=== PATIENT | male | born 1960 | race Caucasian/White ===

== ENCOUNTER 2021-04-23 13:36 | Emergency (ER) | payer OTHER, SELFPAY ==
--- NOTE | ~2021-04-23 | CT_ITS ---
EXAMINATION: CT cervical spine wo [facility] EXAM DATE: 04/23/2021 16:43 INDICATION: Neck pain. TECHNIQUE: Spiral CT of the cervical spine was performed without contrast. Axial images were reviewe d. Coronal and sagittal reformatted images cervical spine were also reviewed. The dose-length produc t (DLP) for this examination was 383.48 mGy-cm. The exposure was tailored according to patient size (auto mA exposure control), and iterative reconstruction (ASIR) was used as additional dose reduction technique. There is no prior study for comparison. FINDINGS: There is moderate disc disease at C6-7, mild at C4-5 and 5-6. Straightening of normal cerv ical lordosis could be positional or spasm. There are no acute fractures identified. The odontoid pro cess is intact. The lateral masses of C1 line up with C2. Prevertebral soft tissue and pre-dens spac e are within normal limits. Sternotomy wires. Level by level evaluation: C2-C3: Disc does not extend beyond the endplate margin. Uncovertebral joint arthropathy: Mild left. Facet joint arthropathy: Mild bilateral. Neural foraminal stenosis: No stenosis. Central canal stenosis: No stenosis. C3-C4: There is a minimal diffuse disc bulge. Uncovertebral joint arthropathy: Mild left. Facet joint arthropathy: Moderate left, mild right. Neural foraminal stenosis: No stenosis. Central canal stenosis: No stenosis. C4-C5: There is a mild diffuse disc bulge. Uncovertebral joint arthropathy: Mild bilateral. Facet joint arthropathy: Mild bilateral. Neural foraminal stenosis: Minimal right. Central canal stenosis: No stenosis. C5-C6: There is a mild diffuse disc bulge asymmetric to the left Uncovertebral joint arthropathy: Moderate left, mild right. Facet joint arthropathy: Mild to moderate right, mild left. Neural foraminal stenosis: Mild left. Central canal stenosis: Mild. C6-C7: There is a mild to moderate diffuse disc bulge. Uncovertebral joint arthropathy: Moderate to severe bilateral. Facet joint arthropathy: Mild to moderate right, mild left. Neural foraminal stenosis: Moderate to severe bilateral. Central canal stenosis: Mild. C7-T1: Disc does not extend beyond the endplate margin. Uncovertebral joint arthropathy: Mild bilateral. Facet joint arthropathy: Moderate right, mild left. Neural foraminal stenosis: Moderate right. Central canal stenosis: No stenosis. IMPRESSION: 1. C6-7 moderate to severe bilateral neural foraminal stenosis. 2. Cervical straightening. Reviewed, dictated and finalized at location A.
--- NOTE | ~2021-04-23 | XR_ITS ---
EXAMINATION: XR chest 2V DATE: 04/23/2021 14:06 INDICATION: Left shoulder pain TECHNIQUE: PA and lateral views of the chest are obtained. COMPARISON: None available FINDINGS: The lungs are free of acute opacities. There is no pleural effusion or pneumothorax. The ca rdiomediastinal silhouette is normal. There is mild thoracic spondylosis. Median sternotomy wires and mediastinal surgical clips are seen, likely from prior coronary artery bypass grafting. IMPRESSION: 1. No acute cardiopulmonary abnormality. Reviewed, dictated and finalized at location B.
--- NOTE | 2021-04-23 13:56 | ECG_ITS ---
Measurements Intervals [place] Rate: 69 P: 59 MS: 181 QRS: 42 QRSD: 93 T: 30 QT: 371 QTc: 400 Interpretive Statements SINUS RHYTHM POSSIBLE LEFT ATRIAL ENLARGEMENT INCOMPLETE RIGHT BUNDLE BRANCH BLOCK BASELINE ARTIFACT- V5-V6 BORDERLINE ECG Electronically Signed On 04-23-2021 14:53:28 CDT by Ken Henley D.O.
[2021-04-23 14:24] VITALS: BP 161/106; PULSE 73; RESP 14; TEMP 36.8; O2SAT 99
[2021-04-23 14:46] LABS: Basophils Percent Auto 0.4 % (0.2-1.2); Eosinophils Absolute Auto 0.1 K/mm3 (0-0.3); Eosinophils Percent Auto 0.8 % (0-4.4); Hematocrit 45.4 % (42.0-52.0); Hemoglobin 14.6 g/dL (14.0-18.0); Immature Granulocyte Absolute 0.06 K/mm3 (0.00-0.031); Immature Granulocyte Percent A 0.5 % (0-0.5); Immature Platelet Fraction Pct 3.6 % (0.9-11.2); Lymphocytes Absolute Auto 1.65 K/mm3 (0.9-3.2); Lymphocytes Percent Auto 15.1 % (18.3-44.2); Mean Corpuscular HGB Conc 32.2 g/dl (32-36); Mean Corpuscular Hemoglobin 30.2 pg (26-34); Mean Platelet Volume 9.3 fl (7.4-10.4); Monocytes Percent Auto 9.1 % (2.6-8.5); Neutrophils Absolute Auto 8.1 K/mm3 (1.3-6.7); Neutrophils Percent Auto 74.1 % (45.5-73.1); Platelet Count Result 303 k/mm3 (150-375); Red Blood Count 4.83 M/mm3 (4.6-6.20); Red Cell Distribution Width 12.7 % (11.5-14.5); White Blood Count 10.9 K/mm3 (4.5-10.0)
[2021-04-23 14:53] LABS: Anion Gap 8 mmol/L (8-16); Blood Urea Nitrogen 23 mg/dL (9-20); Calcium 9.5 mg/dL (8.4-10.2); Carbon Dioxide 26 mmol/L (22-30); Chloride 101 mmol/L (98-107); Estimated CRCL calculation 85 ml/min; Estimated Glomerular Filt Rate > 60; Glucose 89 mg/dL (65-110); Potassium 4.6 mmol/L (3.4-5.0); Sodium 135 mmol/L (137-145)
[2021-04-23 14:56] LABS: INR 0.8; Prothrombin Time 11.4 Seconds (11.1-14.7)
[2021-04-23 14:57] LABS: Partial Thromboplastin Time 22.4 SECONDS (22.3-36.8)
[2021-04-23 15:04] LABS: Troponin I < 0.012 ng/mL (0.000-0.034)
[2021-04-23 16:07] VITALS: BP 166/98; PULSE 64; RESP 21; O2SAT 100
[2021-04-23 16:08] VITALS: BP 166/98; PULSE 62; RESP 20; O2SAT 100
[2021-04-23 16:10] VITALS: PULSE 65
[2021-04-23] MEDS: ASPIRIN 81 MG CHEWABLE TABLET 324 MG PO (16:12)
--- NOTE | 2021-04-23 17:28 | ED.CHESTPAIN ---
HPI - Chest Pain General Chief Complaint: Chest Pain Stated Complaint: left shouler pain/no injury Time Seen by Provider: 04/23/21 16:10 Source: patient and family Mode of arrival: ambulatory Limitations: no limitations History of Present Illness HPI narrative: 60-year-old with a history of coronary artery disease s/p CABG here with complaints of left shoulder neck pain radiating into his left side of the chest. Patient states that the given history of heart problems she did not want to take a chance. Patient states that for the past few weeks she has been having neck issues and he been taking prednisone with only minimal relief. His mentions that he is scheduled for MRI of the neck. Patient presently denies any shortness of breath, nausea or vomiting. He states that pain is constant from his neck radiating into the left chest area. MD complaint: chest pain Pertinent past history: coronary artery disease Onset (ago): day(s) (1) Timing of current episode: constant and still present Prior episodes: No Pain radiation: left shoulder Quality: aching Relieving factors: nothing Exacerbating factors: nothing Risk Factors Coronary artery disease risk factors: family history of CAD before age 50 Related Data Allergies Allergy/AdvReac Type Severity Reaction Status Date / Time No Known Allergies Allergy Verified 04/23/21 16:11 Review of Systems Review of Systems: All systems reviewed & are unremarkable except as noted in HPI and below Constitutional: Constitutional: Reports no additional constitutional complaints Eyes: Eyes: Reports no additional eye complaints ENT: Reports system reviewed and no additional complaints, except as documented Cardiovascular: Cardiovascular: Reports as per HPI Respiratory: Respiratory: Reports no additional respiratory complaints Gastrointestinal: Gastrointestinal: Reports no additional gastrointestinal complaints Musculoskeletal: Musculoskeletal: Reports as per HPI Neurologic: Reports system reviewed and no additional complaints, except as documented PMFSH Social History Social History Gender identity (if verbalized by the patient): Male Exam Narrative: Exam Narrative: GENERAL: Well-appearing, well-nourished, and in no acute distress. HEAD: Normocephalic, atraumatic. EYES: PERRLA and EOMI. ENT: Nares clear, no rhinorrhea or epistaxis. Mucous membranes moist. NECK: Supple. Tender on palpation between C5-C6-C7 area CHEST: Clear to auscultation. No respiratory distress. HEART: Regular rate and rhythm. No murmur heard. Normal peripheral pulses. ABDOMEN: Soft, nontender, nondistended, normal active bowel sounds. EXTREMITIES: Normal range of motion. No edema. SKIN: Warm, dry, no rash. NEURO: No focal deficits. Alert and oriented x3. PSYCH: Normal mood and affect. Course Course Emergency Course: This patient is quite reproducible with flexion extension of his neck. I informed him about his lab work, EKG findings. This pain appears to be more from cervical area rather than cardiac. Advised him to continue with steroids for another week. Consult pain management for possible epidural blocks. Patient states that he feels comfortable going home. Vital Signs Vital signs: Vital Signs Temperature 36.8 C 04/23/21 14:24 Pulse Rate 73 04/23/21 14:24 Respiratory Rate 14 04/23/21 14:24 Blood Pressure 161/106 H 04/23/21 14:24 Pulse Oximetry 99 04/23/21 14:24 Temperature 36.8 C 04/23/21 14:24 Pulse Rate 65 04/23/21 16:10 Respiratory Rate 20 04/23/21 16:08 Blood Pressure 166/98 H 04/23/21 16:08 Pulse Oximetry 100 04/23/21 16:08 MDM - Chest Pain Lab Data Result diagrams: 04/23/21 14:31 04/23/21 14:31 Labs: Lab Results 04/23/21 04/23/21 04/23/21 Range/Units 14:31 14:31 14:31 WBC 10.9 H (4.5-10.0) K/mm3 RBC 4.83 (4.6-6.20) M/mm3 Hgb 14.6 (14.0-18.0)
[2021-04-23 17:35] VITALS: BP 159/106; PULSE 68; RESP 19; O2SAT 100
[2021-04-23 17:37] LABS: Troponin I < 0.012 ng/mL (0.000-0.034)
[2021-04-23] MEDS: KETOROLAC 30 MG/ML VIAL (*BKC) IV PUSH (17:53)
[2021-04-23 18:21] VITALS: BP 157/97; PULSE 74; RESP 19; O2SAT 99
== END 2021-04-23 18:30 | disposition home or self-care (01) ==
PROVIDERS: Emergency Medicine; Emergency Provider Family Medicine; PCP Internal Medicine
DX: M54.12 Radiculopathy, cervical region (principal); R07.89 Other chest pain; I25.10 Atherosclerotic heart disease of native coronary artery without angina pectoris; Z95.1 Presence of aortocoronary bypass graft; M48.02 Spinal stenosis, cervical region; I45.10 Unspecified right bundle-branch block; R94.31 Abnormal electrocardiogram [ECG] [EKG]
CPT/HCPCS: 36415; 71046; 72125; 80048; 84484; 85025; 85055; 85610; 85730; 93005; 96374; 96375; 99284; A9270; J1100; J1885

== ENCOUNTER 2024-06-29 08:44 | Outpatient (CLI) | payer OTHER, SELFPAY ==
--- NOTE | ~2024-06-29 | US_ITS ---
RIGHT LOWER EXTREMITY VENOUS ULTRASOUND Ordering provider: Namrata Feng, MICROBIOLOGY LAB TECHNICIAN History: . dvt . Comparison: None. FINDINGS: --COMMON FEMORAL: Patent and free of thrombus. Normal compressibility, phasic flow and augmentation. --PROXIMAL SUPERFICIAL FEMORAL: Patent and free of thrombus. Normal compressibility, phasic flow and augmentation. --DISTAL SUPERFICIAL FEMORAL: Patent and free of thrombus. Normal compressibility, phasic flow and au gmentation. --POPLITEAL: Patent and free of thrombus. Normal compressibility, phasic flow and augmentation. --POSTERIOR TIBIAL: Patent and free of thrombus. Normal compressibility, phasic flow and augmentation . Complex cystic area most likely Alfred's cyst is seen medially from upper to lower leg measuring 2.7 x 1 x 2.7 cm. Other differential is possible hematoma. IMPRESSION: Negative right lower extremity venous US. No deep vein thrombosis. Cystic structure seen extending from the upper to the lower leg medially most likely represent a Bake r's cyst versus hematoma. Clinical correlation advised Reviewed, dictated and finalized at location A. IMPRESSION: Negative right lower extremity venous US. No deep vein thrombosis. Cystic structure seen extending from the upper to the lower leg medially most l ikely represent a Alfred's cyst versus hematoma. Clinical correlation advised
== END 2024-06-29 08:45 | disposition home or self-care (01) ==
PROVIDERS: PCP Internal Medicine; Visit Provider Nurse Practitioner Family
DX: R79.89 Other specified abnormal findings of blood chemistry (principal); I80.231 Phlebitis and thrombophlebitis of right tibial vein
CPT/HCPCS: 93971

== ENCOUNTER 2024-08-02 10:03 | Outpatient (CLI) | payer OTHER, SELFPAY ==
--- NOTE | ~2024-08-02 | XR_ITS ---
EXAM: XR_CERV2-3V_CR DATE: 08/02/2024 10:26 HISTORY: surg X 1 yr, posterior neck pain X 1 month, limited ROM . COMPARISON: 02/22/2021. FINDINGS: Craniocervical association and atlantoaxial joint are aligned. Mild degenerative change at the atlantodental interval. No prevertebral soft tissue swelling. Uncomplicated appearing ACDF hardw are spanning C5-T1. Mild kyphosis centered at C4-5. Mild anterolisthesis at C3-4. Sternotomy wires an d mediastinal surgical clips. Vertebral body heights are stable. Mild multilevel disc space narrowing /osteophytosis and facet sclerosis and hypertrophy. IMPRESSION: No radiographic evidence of hardware-related complication. Grade 1 anterolisthesis at C3- 4. Mild multilevel degenerative disc disease and facet arthropathy. Reviewed, dictated and finalized at location K. IMPRESSION: No radiographic evidence of hardware-related complication. Grade 1 anterolisthesis at C3-4. Mild multilevel degenerative disc disease and facet ar thropathy.
== END 2024-08-02 10:04 | disposition home or self-care (01) ==
LOC: CHSIMG 10:06
PROVIDERS: PCP Internal Medicine; Visit Provider Internal Medicine
DX: M43.12 Spondylolisthesis, cervical region (principal); M50.31 Other cervical disc degeneration, high cervical region
CPT/HCPCS: 72040

== ENCOUNTER 2024-11-25 07:47 | Outpatient (CLI) | payer OTHER, SELFPAY ==
--- NOTE | ~2024-11-25 | XR_ITS ---
EXAMINATION: XR pelvis min 3V DATE: 11/25/2024 08:23 INDICATION: Closed displaced fracture of the left acetabulum with routine healing TECHNIQUE: An anteroposterior view of the pelvis was obtained. COMPARISON: None. FINDINGS: Old internal fixation with a pair of screws at the left acetabulum reportedly for reported left aceta bular fracture which has presumably healed in essentially anatomic alignment with no discernible frac ture line or deformity. There is a significant bend in the screw which extends from the superolateral left acetabulum towards the sacroiliac joint. No other fractures identified. 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 Mild to moderate osteoarthritis at the bilateral sacroiliac joints. Transit ional lumbosacral segment which is sacralized on the right. IMPRESSION: 1. Internally fixed reported left acetabular fracture which has healed in essentially anatomic alignm ent with no discernible fracture line or deformity. Reviewed, dictated and finalized at location A. TUBE BENDER IMPRESSION: 1. Internally fixed reported left acetabular fracture which has healed in essen tially anatomic alignment with no discernible fracture line or deformity.
== END 2024-11-25 07:48 | disposition home or self-care (01) ==
PROVIDERS: PCP Internal Medicine; Visit Provider Orthopaedic Surgery Orthopaedic Trauma
DX: S32.402D Unspecified fracture of left acetabulum, subsequent encounter for fracture with routine healing (principal); X58.XXXD Exposure to other specified factors, subsequent encounter
CPT/HCPCS: 72190

== ENCOUNTER 2025-07-10 16:50 | Outpatient (CLI) | payer OTHER, SELFPAY ==
--- NOTE | ~2025-07-10 | XR_ITS ---
EXAMINATION: XR pelvis min 3V, 07/10/2025 16:55 CDT HISTORY: Unspecified fracture of left acetabulum, subsequent encounte COMPARISON: No comparisons available. Findings: Postsurgical changes with fixation of the acetabulum with healing fractures. No significant degenerative changes. Soft tissues unremarkable. Impression: Postsurgical changes Reviewed, dictated and finalized at location P. Impression: Postsurgical changes
== END 2025-07-10 16:51 | disposition home or self-care (01) ==
LOC: MICIMG 16:52
PROVIDERS: PCP Internal Medicine; Visit Provider Orthopaedic Surgery Orthopaedic Trauma
DX: S32.402D Unspecified fracture of left acetabulum, subsequent encounter for fracture with routine healing (principal); X58.XXXD Exposure to other specified factors, subsequent encounter; Z98.890 Other specified postprocedural states
CPT/HCPCS: 72190